=== PATIENT | male | born 1985 | race Asian ===

== ENCOUNTER 2021-01-12 09:42 | Emergency (ER) | payer OTHER ==
[~2021-01-12] VITALS: Ht 175.3 cm; Wt 77.1 kg
[~2021-01-12 09:42] MED LIST: DILANTIN100 MG PO; KEFLEX500 MG PO; NOHOMEMEDICATIONS; NORCO 5-325 TA1 EACH PO
[2021-01-12 09:43] VITALS: BP 140/94
[2021-01-12] MEDS ORDERED: NORCO5 PO (11:22)
[2021-01-12] MEDS ORDERED: IBUPROFEN 800800 MG PO (11:22)
== END 2021-01-12 11:33 | disposition home or self-care (01) ==
LOC: ER 09:42
DX: M10.9 Gout, unspecified (principal); M79.671 Pain in right foot; M79.674 Pain in right toe(s); G40.909 Epilepsy, unspecified, not intractable, without status epilepticus; Z79.899 Other long term (current) drug therapy